=== PATIENT | male | born 1940 | race Caucasian/White ===

== ENCOUNTER 2020-06-27 13:21 | Emergency (ER) | payer MEDICARE, OTHER ==
[2020-06-27 16:17] LABS: BASOPHIL 2.6 % (0-2); EOSINOPHIL 1.5 % (0-7); HCT > 60.0 % (42.0-52.0); HGB 19.3 g/dl (13.2-18.0); LYMPHOCYTE 9.4 % (15-48); MCH 28.8 pg (25.0-31.0); MCHC 31.6 g/dL (32.0-36.0); MCV 91.2 fL (78.0-100.0); MONOCYTE 6.8 % (0-12); MPV 9.3 fL (6.0-9.5); NEUTROPHIL 78.3 % (41-80); NRBC 0.1; PLT 634 K/uL (150-400); RDW 14.4 % (11.5-14.0); WBC 16.8 K/uL (4.0-10.5)
[2020-06-27 16:32] LABS: ALBUMIN 3.9 g/dL (3.4-5.0); BILIRUBIN - TOTAL 0.9 mg/dL (0.2-1.0); BUN/CREAT RATIO (CALC) 16.9 RATIO; CREATININE 1.3 mg/dL (0.67-1.17); GLOBULIN (CALCULATION) 4.9 g/dL; POTASSIUM 4.4 mmol/L (3.5-5.1); TOTAL PROTEIN 8.8 g/dL (6.4-8.2)
[2020-06-27] MEDS ORDERED: AUGMENTIN 875-1 EACH PO (17:29)
[2020-09-16] MEDS ORDERED: GABAPENTIN 100100 MG PO (13:14)
[2020-09-16] MEDS ORDERED: LEVOTHYROXINE50 MCG PO (13:14)
[2020-09-16] MEDS ORDERED: DUONEB 2.5-0.5M1 AMP INH (13:15)
[2020-09-16] MEDS ORDERED: ADVAIR 500-501 EACH INH (13:22)
[2020-09-16] MEDS ORDERED: ASPIRIN EC81 MG PO (13:22)
== END 2020-06-27 17:49 | disposition home or self-care (01) ==
LOC: FER 13:21
PROVIDERS: Physician Assistant
DX: L03.116 Cellulitis of left lower limb (principal); I25.2 Old myocardial infarction; J44.9 Chronic obstructive pulmonary disease, unspecified; Z95.5 Presence of coronary angioplasty implant and graft; M79.672 Pain in left foot
CPT/HCPCS: 36415; 80053; 85025; 93971

== ENCOUNTER 2021-01-23 09:10 | Emergency (ER) | payer MEDICARE, OTHER ==
[~2021-01-23 09:10] MED LIST: ADVAIR 500-501 EACH INH; ASPIRIN EC81 MG PO; ASPIRIN325 MG PO; AUGMENTIN 875-1 EACH PO; DUONEB 2.5-0.5M1 AMP INH; FEOSOL325 MG PO; GABAPENTIN 100100 MG PO; HYDREA500 MG PO; LEVOTHYROXINE50 MCG PO; OXYCODONE-ACET1 EAC1 PO
[2021-01-23 10:43] LABS: BASOPHIL 0.8 % (0-2); EOSINOPHIL 0.2 & (0-7); HGB 16.7 g/dl (13.2-18.0); LYMPHOCYTE 6.3 % (15-48); MCH 30.4 pg (25.0-31.0); MCHC 32.1 g/dL (32.0-36.0); MCV 94.7 fL (78.0-100.0); MONOCYTE 5.5 % (0-12); MPV 8.9 fL (6.0-9.5); PLT 743 K/uL (150-400); RBC 5.49 M/uL (4.70-6.00); RDW 20.2 % (11.5-14.0); WBC 8.89 K/uL (4.0-10.5)
[2021-01-23] MEDS ORDERED: CEFPODOXIME PR200 MG PO (10:52)
[2021-01-23] MEDS ORDERED: AZITHROMYCIN250 MG PO (10:52)
[2021-01-23] MEDS ORDERED: PREDNISONE 20MG20 MG PO (10:53)
[2021-01-23 11:07] LABS: ALBUMIN 3.1 g/dL (3.4-5.0); BILIRUBIN - TOTAL 0.7 mg/dL (0.2-1.0); BUN/CREAT RATIO (CALC) 22.2 RATIO; CREATININE 1.08 mg/dL (0.67-1.17); GLOBULIN (CALCULATION) 3.7 g/dL; POTASSIUM 4.9 mmol/L (3.5-5.1); TOTAL PROTEIN 6.8 g/dL (6.4-8.2)
== END 2021-01-23 14:38 | disposition home or self-care (01) ==
LOC: FER 09:10
PROVIDERS: Internal Medicine
DX: U07.1 COVID-19 (principal); J12.82 Pneumonia due to coronavirus disease 2019; J44.1 Chronic obstructive pulmonary disease with (acute) exacerbation; D47.3 Essential (hemorrhagic) thrombocythemia
CPT/HCPCS: 36415; 71045; 80053; 84145; 84484; 85025; 93005; J0456; J0696; J2930; J7050; J7120; M0243; Q0244; U0002

== ENCOUNTER 2021-01-30 07:58 | Emergency (ER) | payer MEDICARE, OTHER ==
[~2021-01-30 07:58] MED LIST changes: +AZITHROMYCIN250 MG PO; +CEFPODOXIME PR200 MG PO; +PREDNISONE 20MG20 MG PO
[2021-01-30 08:45] LABS: BASOPHIL 1.1 % (0-2); EOSINOPHIL 0.1 % (0-7); HCT 49.8 % (42.0-52.0); HGB 16.4 g/dl (13.2-18.0); LYMPHOCYTE 3.9 % (15-48); MCHC 32.9 g/dL (32.0-36.0); MCV 94.1 fL (78.0-100.0); MONOCYTE 6.2 % (0-12); MPV 9.4 fL (6.0-9.5); NEUTROPHIL 86.6 % (41-80); NRBC 0; PLT 542 K/uL (150-400); RBC 5.29 M/uL (4.70-6.00); RDW 19.9 % (11.5-14.0); WBC 17.8 K/uL (4.0-10.5)
[2021-01-30 08:56] LABS: BILIRUBIN - TOTAL 1.1 mg/dL (0.2-1.0); BUN/CREAT RATIO (CALC) 18.6 RATIO; CREATININE 0.97 mg/dL (0.67-1.17); GLOBULIN (CALCULATION) 3.9 g/dL; POTASSIUM 3.4 mmol/L (3.5-5.1); TOTAL PROTEIN 6.9 g/dL (6.4-8.2)
== END 2021-01-30 09:52 | disposition home or self-care (01) ==
LOC: FER 07:58
PROVIDERS: Emergency Medicine
DX: U07.1 COVID-19 (principal); J44.9 Chronic obstructive pulmonary disease, unspecified
CPT/HCPCS: 36415; 71045; 80053; 85025

== ENCOUNTER 2021-02-01 08:44 | Inpatient (IN) | payer MEDICARE, OTHER ==
[~2021-02-01] VITALS: Ht 170.2 cm; Wt 68.0 kg
[2021-02-01 10:34] LABS: LACTIC ACID 1.4 mmol/L (0.4-1.9)
[2021-02-01 10:37] LABS: ALBUMIN 3.1 g/dL (3.4-5.0); ALKALINE PHOSHATASE 121 U/L (46-116); ALT 34 U/L (16-63); AST 21 U/L (15-37); BILIRUBIN - TOTAL 1.2 mg/dL (0.2-1.0); BUN 21 mg/dL (7-18); BUN/CREAT RATIO (CALC) 21.2 RATIO; C-REACTIVE PROTEIN >18.00 mg/dL (<=0.90); CHLORIDE 98 mmol/L (98-107); CO2 (BICARBONATE) 28 mmol/L (21-32); CREATININE 0.99 mg/dL (0.67-1.17); GLOBULIN (CALCULATION) 4.4 g/dL; GLUCOSE 119 mg/dL (74-106); LIPASE 181 U/L (73-393); POTASSIUM 3.6 mmol/L (3.5-5.1); TOTAL PROTEIN 7.5 g/dL (6.4-8.2)
[2021-02-01 10:39] LABS: EOSINOPHIL 0 % (0-7); HCT 53.9 % (42.0-52.0); HGB 17.4 g/dl (13.2-18.0); MCH 30.7 pg (25.0-31.0); MCHC 32.3 g/dL (32.0-36.0); MCV 95.1 fL (78.0-100.0); MPV 10.2 fL (6.0-9.5); NEUTROPHIL 88.8 % (41-80); NRBC 0; PLT 405 K/uL (150-400); RBC 5.67 M/uL (4.70-6.00); RDW 19.7 % (11.5-14.0)
[2021-02-01 13:30] LABS: BILIRUBIN 2+ mg/dL (NEGATIVE); BLOOD TRACE-INTACT Ery/uL (NEGATIVE); CLARITY CLEAR (CLEAR); COLOR YELLOW (YELLOW); GLUCOSE (U) NORMAL (NORMAL); LEUKOCYTES NEGATIVE Leu/uL (NEGATIVE); NITRITE POSITIVE (NEGATIVE); PROTEIN 2+ mg/dL (NEGATIVE); SPECIFIC GRAVITY >=1.030 (1.001-1.030)
[2021-02-01 13:42] LABS: BACTERIA 2+
[2021-02-02 06:14] LABS: BASOPHIL 0.5 % (0-2); EOSINOPHIL 0 % (0-7); HCT 38.2 % (42.0-52.0); LYMPHOCYTE 2.9 % (15-48); MCH 31.2 pg (25.0-31.0); MCHC 31.4 g/dL (32.0-36.0); MPV 10.1 fL (6.0-9.5); NEUTROPHIL 89.8 % (41-80); NRBC 0; PLT 277 K/uL (150-400); RBC 3.85 M/uL (4.70-6.00); WBC 16.6 K/uL (4.0-10.5)
[2021-02-02 06:23] LABS: MCV 99.2 fL (78.0-100.0)
[2021-02-02 08:29] LABS: ALBUMIN 2.3 g/dL (3.4-5.0); BILIRUBIN - TOTAL 0.6 mg/dL (0.2-1.0); CREATININE 1.05 mg/dL (0.67-1.17); GLOBULIN (CALCULATION) 3.8 g/dL; POTASSIUM 3.8 mmol/L (3.5-5.1); TOTAL PROTEIN 6.1 g/dL (6.4-8.2)
[2021-02-02 08:30] LABS: C-REACTIVE PROTEIN 16.3 mg/dL (<=0.90); MAGNESIUM 2.4 mg/dL (1.8-2.4)
[2021-02-03 06:07] LABS: BASOPHIL 0.8 % (0-2); EOSINOPHIL 0.2 % (0-7); HCT 46.9 % (42.0-52.0); MCH 31.1 pg (25.0-31.0); MCV 97.3 fL (78.0-100.0); MPV 10.1 fL (6.0-9.5); NEUTROPHIL 89.3 % (41-80); NRBC 0; PLT 318 K/uL (150-400); RBC 4.82 M/uL (4.70-6.00); RDW 18.8 % (11.5-14.0); WBC 22.2 K/uL (4.0-10.5)
[2021-02-03 07:10] LABS: CREATININE 0.73 mg/dL (0.67-1.17); POTASSIUM 3.4 mmol/L (3.5-5.1)
--- NOTE | 2021-02-03 19:21 | NUR ---
1900 MIDLINE ORDERED FOR IV ACCESS. PROCEDURE EXPLAINED TO PT. PT PREPPED AND DRAPED IN STERILE FASHION. THE PT'S RIGHT UPPER ARM BAISLIC VEIN WAS VISUALIZED USING THE SITE RITE#6 US MACHINE. A #21 GAUGE GUIDE NEEDLE WAS ISED. GOOD BLOOD RETURN WAS NOTED. THE GUIDE WIRE THRADED EASILY. THE NEEDLE WAS REMOVED AND THE MIDLINE CATHETER WAS PLACED OVER THE WIRE. THE WIRE AND SHEATH WERE REMOVED. GOOD BLOOD RETURN WAS NOTED. A CONNECTOR WAS FLUSHED AND PLACED ON TH CATHETER AND A BIOPATCH WAS PLACED ON TOP OF THE INSERTION SITE. A STERILE TEGADERM WAS PLACED OVER THE MIDLINE CATHETER. PT TOLERATED THE PROCEDURE WELL. PT HAS A #20 GAUGE 10 CM POWERGLIDE MIDLINE CATHETER. GOOD FOR 29 DAYS. THIS IS NOT A CENTRAL LINE. REPORT WAS GIVEN TO Thelma LUND ON MED/SURG. THE PATIENT'S BE WAS LOWERED TO THE GROUND, SIDERAILS UP X 3, CALL LIGHT WAS WITHIN REACH.
[2021-02-04 06:19] LABS: BASOPHIL 0.8 % (0-2); EOSINOPHIL 0 % (0-7); HCT 50.4 % (42.0-52.0); LYMPHOCYTE 1.5 % (15-48); MCH 31.2 pg (25.0-31.0); MCHC 31.7 g/dL (32.0-36.0); MCV 98.2 fL (78.0-100.0); MONOCYTE 5.6 % (0-12); NRBC 0; PLT 362 K/uL (150-400); RBC 5.13 M/uL (4.70-6.00); RDW 18.9 % (11.5-14.0); WBC 29.7 K/uL (4.0-10.5)
[2021-02-04 06:38] LABS: NEUTROPHIL 90.8 % (41-80)
[2021-02-04 06:52] LABS: BUN/CREAT RATIO (CALC) 21.1 RATIO; CREATININE 0.71 mg/dL (0.67-1.17); MAGNESIUM 1.9 mg/dL (1.8-2.4); POTASSIUM 3.9 mmol/L (3.5-5.1)
--- NOTE | 2021-02-04 13:46 | NUR ---
02/04/21 Please monitor for 02 needs.
[2021-02-04 18:02] LABS: BILIRUBIN 1+ mg/dL (NEGATIVE); BLOOD 2+ Ery/uL (NEGATIVE); CLARITY CLEAR (CLEAR); COLOR YELLOW (YELLOW); GLUCOSE (U) NORMAL (NORMAL); LEUKOCYTES NEGATIVE Leu/uL (NEGATIVE); NITRITE POSITIVE (NEGATIVE); PROTEIN 1+ mg/dL (NEGATIVE); SPECIFIC GRAVITY >=1.030 (1.001-1.030); pH 5.5 (5.0-9.0)
[2021-02-04 18:23] LABS: AMORPHOUS URATES CRYSTALS LARGE; BACTERIA 2+; SQUAMOUS EPITHELIAL CELLS RARE; URINARY RBC RARE
--- NOTE | 2021-02-04 19:45 | NUR ---
PATIENT RETURNED FROM OR. DROWSY, EASILY AROUSED. SEE VITAL SIGN SHEET. OXYGEN IN USE AT 2 LITERS. NG TUBE REMAINS IN PLACE TO LEFT NARIES. IJ NOTED TO RIGHT SIDE OF NECK. ADRIAN CATHETER PLACED IN OR 18 FR. DRAINING DARK YELLOW URINE. MIDLINE INCISION TO ABDOMEN LEXIS. SMALL BORDERED GAUZE TO LEFT UPPER QUADRANT OF ABDOMEN.
[2021-02-05 05:08] LABS: BASOPHIL 0.5 % (0-2); EOSINOPHIL 0 % (0-7); HGB 15.5 g/dl (13.2-18.0); MCH 31.2 pg (25.0-31.0); MCHC 31.6 g/dL (32.0-36.0); MCV 98.6 fL (78.0-100.0); MONOCYTE 5.1 % (0-12); MPV 10.5 fL (6.0-9.5); NEUTROPHIL 91.2 % (41-80); NRBC 0; PLT 285 K/uL (150-400); RBC 4.97 M/uL (4.70-6.00); RDW 18.9 % (11.5-14.0)
[2021-02-05 05:11] LABS: WBC 31.7 K/uL (4.0-10.5)
[2021-02-05 05:12] LABS: ALBUMIN 1.7 g/dL (3.4-5.0); BILIRUBIN - TOTAL 1.1 mg/dL (0.2-1.0); BUN/CREAT RATIO (CALC) 15.8 RATIO; CREATININE 0.95 mg/dL (0.67-1.17); GLOBULIN (CALCULATION) 3.4 g/dL; MAGNESIUM 1.5 mg/dL (1.8-2.4); POTASSIUM 4.3 mmol/L (3.5-5.1); TOTAL PROTEIN 5.1 g/dL (6.4-8.2)
[2021-02-06 04:46] LABS: BASOPHIL 0.3 % (0-2); EOSINOPHIL 0.1 % (0-7); HCT 41.2 % (42.0-52.0); HGB 13.1 g/dl (13.2-18.0); LYMPHOCYTE 1.9 % (15-48); MCH 31.5 pg (25.0-31.0); MCHC 31.8 g/dL (32.0-36.0); MONOCYTE 4.7 % (0-12); MPV 10.2 fL (6.0-9.5); NRBC 0; PLT 246 K/uL (150-400); RBC 4.16 M/uL (4.70-6.00); RDW 18.5 % (11.5-14.0); WBC 21.6 K/uL (4.0-10.5)
[2021-02-06 04:58] LABS: NEUTROPHIL 91.7 % (41-80)
[2021-02-06 05:03] LABS: CREATININE 0.81 mg/dL (0.67-1.17); PHOSPHORUS 1.7 mg/dL (2.6-4.7); POTASSIUM 4.2 mmol/L (3.5-5.1)
[2021-02-06 05:04] LABS: MAGNESIUM 2.2 mg/dL (1.8-2.4)
[2021-02-07 06:56] LABS: BASOPHIL 0.2 % (0-2); EOSINOPHIL 0.2 % (0-7); HGB 13.5 g/dl (13.2-18.0); LYMPHOCYTE 3.3 % (15-48); MCH 31.3 pg (25.0-31.0); MCHC 32.1 g/dL (32.0-36.0); MCV 97.4 fL (78.0-100.0); MONOCYTE 5.2 % (0-12); MPV 10.2 fL (6.0-9.5); NEUTROPHIL 89.4 % (41-80); NRBC 0; PLT 280 K/uL (150-400); RBC 4.31 M/uL (4.70-6.00); RDW 17.7 % (11.5-14.0); WBC 18.7 K/uL (4.0-10.5)
[2021-02-07 07:16] LABS: ALBUMIN 1.7 g/dL (3.4-5.0); BILIRUBIN - TOTAL 0.5 mg/dL (0.2-1.0); BUN/CREAT RATIO (CALC) 17.1 RATIO; CREATININE 0.76 mg/dL (0.67-1.17); GLOBULIN (CALCULATION) 3.2 g/dL; PHOSPHORUS 2.1 mg/dL (2.6-4.7); POTASSIUM 4.5 mmol/L (3.5-5.1); TOTAL PROTEIN 4.9 g/dL (6.4-8.2)
[2021-02-08 05:01] LABS: BASOPHIL 0.3 % (0-2); EOSINOPHIL 0.8 % (0-7); HCT 44.8 % (42.0-52.0); HGB 14.4 g/dl (13.2-18.0); LYMPHOCYTE 5.3 % (15-48); MCH 31.4 pg (25.0-31.0); MCHC 32.1 g/dL (32.0-36.0); MCV 97.6 fL (78.0-100.0); MONOCYTE 6.4 % (0-12); MPV 10.2 fL (6.0-9.5); NEUTROPHIL 85.2 % (41-80); NRBC 0; PLT 299 K/uL (150-400); RBC 4.59 M/uL (4.70-6.00); RDW 17.9 % (11.5-14.0); WBC 16.2 K/uL (4.0-10.5)
[2021-02-08 05:16] LABS: BUN/CREAT RATIO (CALC) 17.7 RATIO; CREATININE 0.79 mg/dL (0.67-1.17); MAGNESIUM 1.9 mg/dL (1.8-2.4)
--- NOTE | 2021-02-08 18:12 | NUR ---
1745 CALLED TO CHECK MIDLINE PLACEMENT, NURSE COULD NOT FLUSH THE LINE OR ASPIRATE BLOOD. THE DRESSING OVER THE MIDLINE WAS REMOVED, THE MIDLINE WAS OUT APROXIMATELY 1/4-1/2 INCH, MIDLINE WAS READJUSTED, FLUSHED WITH 30 ML OF STERILE NORMAL SALINE WITHOUT DIFFICULTY, BLOOD RETURN OBTAINED FLUSHED AGAIN WITH 20 ML OF NS. NEW STAT YASMINE PUT ON HUB OF MIDLINE AND A NEW STERILE TEGADERM WAS APPLIED OVER THE MIDLINE INSERTION SITE. PT TOLERATED THE DRESSING CHANGE WELL. REPORT GIVEN TO ASHELY Renee ON MED/SURG. BED WAS LOWERED TO THE LOWEST POSITION, SR UP X 2, CALL LIGHT WAS WITHIN REACH.
[2021-02-09] MEDS ORDERED: ELIQUIS2.5 MG PO (13:03)
[2021-02-09] MEDS ORDERED: OXY-IR 5MG5 MG PO (13:18)
[2021-02-09] MEDS ORDERED: PROVENTIL HFA6.7 GM INH (13:18)
[2021-02-09] MEDS ORDERED: PROTONIX 40MG T40 MG PO (13:18)
--- NOTE | 2021-02-09 13:40 | NUR ---
TC TO PT. HE IS IN [place]ART[place]. HE ADVISED ME THAT HE IS SCHEDULED TO GO TO [facility] FOR HIS REHAB AND THAT IS WHERE HE WISHES TO GO. HE IS IN AGREEMENT WITH [facility] FOR HIS HOME O2. SPOKE WITH SHANIQUA AT [facility] - PT. COPAY FOR DWAIN $45.00. ADVISED PT. OF THIS INFORAMTION. ADVISED DR. HAMMONDS AND GISELA LUND OF PT. PLAN FOR REHAB AND HIS COPAY AMT. FOR [facility] AT [facility].
[2021-02-09] MEDS ORDERED: DEXAMETHASONE 2M2 MG PO (13:44)
== END 2021-02-09 15:32 | disposition home or self-care (01) | DRG 329 ==
LOC: FER 08:44 → FMS 13:15
PROVIDERS: Internal Medicine; Student in an Organized Health Care Education/Training Program; ADMIT Internal Medicine
PROC: 8E0ZXY6 Isolation (ICD-10-PCS; 2021-02-01)
PROC: XW033E5 Introduction of Remdesivir Anti-infective into Peripheral Vein, Percutaneous Approach, New Technology Group 5 (ICD-10-PCS; 2021-02-01)
PROC: 05HY33Z Insertion of Infusion Device into Upper Vein, Percutaneous Approach (ICD-10-PCS; 2021-02-03)
PROC: 0WJG4ZZ Inspection of Peritoneal Cavity, Percutaneous Endoscopic Approach (ICD-10-PCS; 2021-02-04)
PROC: 0DN80ZZ Release Small Intestine, Open Approach (ICD-10-PCS; 2021-02-04)
PROC: 02HV33Z Insertion of Infusion Device into Superior Vena Cava, Percutaneous Approach (ICD-10-PCS; 2021-02-04)
PROC: B548ZZA Ultrasonography of Superior Vena Cava, Guidance (ICD-10-PCS; 2021-02-04)
PROC: 0DB80ZZ Excision of Small Intestine, Open Approach (ICD-10-PCS; principal; 2021-02-04 15:00)
DX: K56.51 Intestinal adhesions [bands], with partial obstruction (principal); K55.021 Focal (segmental) acute infarction of small intestine; U07.1 COVID-19; J12.82 Pneumonia due to coronavirus disease 2019; J96.01 Acute respiratory failure with hypoxia; J44.0 Chronic obstructive pulmonary disease with (acute) lower respiratory infection; K56.7 Ileus, unspecified; D75.1 Secondary polycythemia; E03.9 Hypothyroidism, unspecified; M19.012 Primary osteoarthritis, left shoulder; Z96.619 Presence of unspecified artificial shoulder joint; Z53.31 Laparoscopic surgical procedure converted to open procedure; I25.2 Old myocardial infarction; Z95.5 Presence of coronary angioplasty implant and graft; Z95.820 Peripheral vascular angioplasty status with implants and grafts; Z98.890 Other specified postprocedural states; Z82.49 Family history of ischemic heart disease and other diseases of the circulatory system; Z79.82 Long term (current) use of aspirin; Z79.890 Hormone replacement therapy; Z79.899 Other long term (current) drug therapy; Z87.891 Personal history of nicotine dependence
CPT/HCPCS: 36415; 71045; 74018; 74019; 74250; 80048; 80053; 81001; 82728; 83605; 83690; 83735; 84100; 85025; 86140; 87088; 94010; 94640; 97110; 97162; 97166; 97530-GP; 97535; C1751; C9113; C9399; J0610; J0696; J0780; J1100; J1170; J1642; J1650; J2001; J2270; J2405; J2543; J2704; J3010; J3475; J3480; J7030; J7050; J7120

== ENCOUNTER 2021-04-05 10:44 | Inpatient (IN) | payer MEDICARE, OTHER ==
[~2021-04-05] VITALS: Ht 170.2 cm; Wt 60.4 kg
[~2021-04-05 10:44] MED LIST changes: +DEXAMETHASONE 2M2 MG PO; +ELIQUIS2.5 MG PO; +OXY-IR 5MG5 MG PO; +PROTONIX 40MG T40 MG PO; +PROVENTIL HFA6.7 GM INH
[2021-04-05 11:52] LABS: BASOPHIL 1.1 % (0-2); EOSINOPHIL 0.3 % (0-7); HCT 41.4 % (42.0-52.0); HGB 13.3 g/dl (13.2-18.0); LYMPHOCYTE 9.2 % (15-48); MCHC 32.1 g/dL (32.0-36.0); MCV 99.5 fL (78.0-100.0); MONOCYTE 3.3 % (0-12); MPV 9.3 fL (6.0-9.5); NRBC 0; PLT 684 K/uL (150-400); RBC 4.16 M/uL (4.70-6.00); RDW 15.1 % (11.5-14.0); WBC 16.8 K/uL (4.0-10.5)
[2021-04-05 11:57] LABS: BILIRUBIN 2+ mg/dL (NEGATIVE); BLOOD NEGATIVE Ery/uL (NEGATIVE); CLARITY CLEAR (CLEAR); COLOR YELLOW (YELLOW); GLUCOSE (U) NORMAL (NORMAL); LEUKOCYTES NEGATIVE Leu/uL (NEGATIVE); NITRITE NEGATIVE (NEGATIVE); PROTEIN TRACE (LOW) mg/dL (NEGATIVE); SPECIFIC GRAVITY 1.025 (1.001-1.030)
[2021-04-05 12:14] LABS: BACTERIA TRACE; URINARY RBC RARE; URINARY WBC RARE
[2021-04-05 12:15] LABS: ALBUMIN 2.2 g/dL (3.4-5.0); BILIRUBIN - TOTAL 0.7 mg/dL (0.2-1.0); BUN/CREAT RATIO (CALC) 13.9 RATIO; CREATININE 0.72 mg/dL (0.67-1.17); GLOBULIN (CALCULATION) 3.9 g/dL; POTASSIUM 3.1 mmol/L (3.5-5.1); TOTAL PROTEIN 6.1 g/dL (6.4-8.2)
[2021-04-05 12:20] LABS: LACTIC ACID 1.1 mmol/L (0.4-1.9)
[2021-04-06 05:52] LABS: HCT 38.2 % (42.0-52.0); HGB 12.2 g/dl (13.2-18.0); MCH 31.6 pg (25.0-31.0); MCHC 31.9 g/dL (32.0-36.0); MPV 9.3 fL (6.0-9.5); RBC 3.86 M/uL (4.70-6.00); RDW 14.8 % (11.5-14.0); WBC 12.2 K/uL (4.0-10.5)
[2021-04-06 06:02] LABS: BUN/CREAT RATIO (CALC) 11.1 RATIO; CREATININE 0.72 mg/dL (0.67-1.17); POTASSIUM 2.8 mmol/L (3.5-5.1)
[2021-04-07 06:34] LABS: HCT 37.8 % (42.0-52.0); MCH 32.1 pg (25.0-31.0); MCHC 31.7 g/dL (32.0-36.0); MCV 101.1 fL (78.0-100.0); MPV 9.4 fL (6.0-9.5); RBC 3.74 M/uL (4.70-6.00); WBC 11.3 K/uL (4.0-10.5)
[2021-04-07 07:18] LABS: BUN/CREAT RATIO (CALC) 6.8 RATIO; CREATININE 0.74 mg/dL (0.67-1.17); POTASSIUM 3.7 mmol/L (3.5-5.1)
--- NOTE | 2021-04-07 14:00 | NUR ---
04/07/21 Mr. Kumar lives at home with his spouse. He has a rw and built-in shower seat. [facility] is current and has been notified of admission. [facility] does not have ST. St recommended HH services. [facility] reports to be able to provide ST services from their OT. This is acceptable per family and Dr. Hood. Please notify [facility] at [phone] if patient discharges over the weekend.
[2021-04-08] MEDS ORDERED: REGLAN5 MG PO (11:13)
[2021-04-08] MEDS ORDERED: LEVAQUIN750 MG PO (11:14)
--- NOTE | 2021-04-08 11:49 | NUR ---
Patient discharged this date: prior to d/c, education provided to patient/ re: importance of nutrition; goals; suggestions for increasing april/protein in foods; and samples of ONS [place] provided. written materials provided as well. verbalized understanding. RD discussed patient's d/c plans: HH to provide ST tx- f/u with attention to nutritional goals.
--- NOTE | 2021-04-08 14:58 | NUR ---
BHARATH DE SOUZA WITH CARETENDERS OF PT. DISCHARGE.
== END 2021-04-08 12:20 | disposition home health service (06) | DRG 178 ==
LOC: FER 10:44 → FICU 13:44 → FMS 13:44
PROVIDERS: Emergency Medicine; ADMIT Hospitalist
DX: J69.0 Pneumonitis due to inhalation of food and vomit (principal); E46 Unspecified protein-calorie malnutrition; Z68.1 Body mass index [BMI] 19.9 or less, adult; B37.0 Candidal stomatitis; J12.9 Viral pneumonia, unspecified; Z20.822 Contact with and (suspected) exposure to COVID-19; R13.10 Dysphagia, unspecified; J44.9 Chronic obstructive pulmonary disease, unspecified; E03.9 Hypothyroidism, unspecified; M19.90 Unspecified osteoarthritis, unspecified site; I25.10 Atherosclerotic heart disease of native coronary artery without angina pectoris; D45 Polycythemia vera; J45.909 Unspecified asthma, uncomplicated; L89.152 Pressure ulcer of sacral region, stage 2; U09.9 Post COVID-19 condition, unspecified; K21.9 Gastro-esophageal reflux disease without esophagitis; J84.10 Pulmonary fibrosis, unspecified; Z90.49 Acquired absence of other specified parts of digestive tract; Z98.890 Other specified postprocedural states; Z87.891 Personal history of nicotine dependence; Z79.01 Long term (current) use of anticoagulants; Z79.890 Hormone replacement therapy; Z79.899 Other long term (current) drug therapy; Z98.41 Cataract extraction status, right eye; Z98.42 Cataract extraction status, left eye; Z95.5 Presence of coronary angioplasty implant and graft; I25.2 Old myocardial infarction
CPT/HCPCS: 36415; 71045; 71250; 74230; 80048; 80053; 81001; 83605; 84145; 85025; 92611; 93005; 97110; 97162; 97166; 97530-GP; 97535; J1364; J1650; J1956; J7030; J7040; U0002